=== PATIENT | female | born 1985 | race Caucasian/White ===

== ENCOUNTER → 2018-07-07 11:55 | Outpatient (CLI) | payer BC, SELFPAY ==
[2018-07-07 12:45] LABS: Add Manual Diff / Slide Review NO; Appearance Urine UA CLEAR; Basophils Percent Auto 0.3 % (0-2); Bilirubin Urine UA NEGATIVE (NEGATIVE); Color Urine UA YELLOW; Eosinophils Percent Auto 3.1 % (2-4); Glucose Urine UA NEGATIVE (Normal); Hemoglobin 11.7 g/dL (12.0-16.0); Ketones Urine UA NEGATIVE (NEGATIVE); Leukocyte Esterase Urine UA NEGATIVE (NEGATIVE); Lymphocytes Percent Auto 15.6 % (25-40); Mean Corpuscular HGB Conc 34.4 % (30-36); Monocytes Percent Auto 5.3 % (3-14); Neutrophils Absolute Auto 8500 /uL (3000-5900); Neutrophils Percent Auto 75.7 % (50-75); Nitrite Urine UA Negative (Negative); Occult Blood Urine UA NEGATIVE (Negative); Platelet Count 284 X10^3/uL (150-400); Protein Urine UA NEGATIVE (Negative); Red Blood Cell Count 3.78 X10^6/uL (4.0-5.2); Red Cell Distribution Width 12.7 % (11.6-14.8); Specific Gravity Urine UA 1.015 (1.000-1.035); Urobilinogen Urine UA 0.2 E.U./dL (0.2); White Blood Cell Count 11.3 X10^3/uL (4.5-11.0)
[2018-07-07 16:36] LABS: Hepatitis B Surface Antigen NEGATIVE s/c (NEGATIVE); Rubella Antibody IgG 62.5 IU/mL (>15)
[2018-07-07 16:42] LABS: HIV 1 and 2 Antibody NEGATIVE (NEGATIVE); Hep C Virus Ab w/Reflex Quant NEGATIVE s/c (NEGATIVE)
[2018-07-08 14:12] LABS: HSV 2 IGG AB < 0.90 index (< 0.90); HSV1IGG > 58.00 index (< 0.90)
[2018-07-15 14:51] LABS: Rapid Plasma Reagin NON REACTIVE
== END ==
PROVIDERS: Visit Provider Obstetrics & Gynecology
DX: O30.009 Twin pregnancy, unspecified number of placenta and unspecified number of amniotic sacs, unspecified trimester (principal); Z3A.10 10 weeks gestation of pregnancy
CPT/HCPCS: 36415; 80055; 81003; 86695; 86696; 86703; 86787; 86803; 86850; 86900; 86901; 87086

== ENCOUNTER → 2018-09-25 12:07 | Outpatient (CLI) | payer BC, SELFPAY ==
--- NOTE | 2018-09-25 12:08 | DI.US.S_ITS ---
PROCEDURE: US OB >= 14 WEEKS FETUS INDICATIONS: ANATOMY, TWINS OUTSIDE/PRIOR DATING DATA: Last menstrual period (LMP): Unknown. LMP-based estimated date of delivery (TOÑITO): N./A.. First dating scan (date and location): 07/08/18. Estimated date of delivery (TOÑITO) from first dating scan: 02/01/19. TECHNIQUE: Real-time scanning was performed of the fetuses, with image documentation and biometric measurements. Endovaginal scanning: No COMPARISON: [facility], [place], OB TWINS < 14 WEEKS, 09/02/2018, 16:30. FINDINGS: General: An intrauterine diamniotic dichorionic twin is present, as evidenced by separate placentas, differing sexes, or an intervening membrane of greater than 2 mm. Amniotic fluid index (composite): 14.2 cm. Maternal cervical canal: 3.8 cm long. Normal lower limit is 2.5 cm. FETUS A: Fetus is located on the maternal left side, and is vertex in presentation. Placental position is posterior, without previa. heart rate: 140 beats per minute. biometrics: Biparietal diameter: 21 weeks Head circumference: 20 weeks 4 days Abdominal circumference: 20 weeks 3 days Femur length: 20 weeks 2 days Estimated gestational age from initial scan: 21 weeks 4 days Composite gestational age from present scan: 20 weeks 4 days Estimated weight and percentile: 353 g; 6 percentile Measurement variability for biometric dating: +/- 7 days from 14 weeks to 15 weeks 6 days gestation, +/- 10 days from 16 weeks to 21 weeks 6 days gestation, +/- 2 weeks from 22 weeks to 27 weeks 6 days gestation, +/- 3 weeks for 28 weeks gestation or later. weight reference: 4500 g or EFW >90/95% is considered macrosomia or large for gestational age. EFW <10% is small for gestational age. EFW 5% or less is considered intra-uterine growth restriction. Anatomic survey: Neuro: Ventricles are normal at less than 10 mm. Cisterna magna is normal at 3-11 mm. Cerebellum is normal in size and morphology. Nuchal skin fold: Normal at less than 6 mm between 14 and 21 weeks gestational age. Face: Nose and lips, facial profile are normal. Spine: No evidence for spina bifida. Heart: 4 chambered heart is present, with normal ventricular outflow tracts. Diaphragm: Diaphragm is intact. Stomach: Left-sided stomach is present. Kidneys: No hydronephrosis. Normal ranges are less than 5 mm in 2nd trimester, less than 7 mm in 3rd trimester. Cord: 3 vessel cord has orthotopic insertion. Bladder: Normal in size. Extremities: All 4 extremities are visualized. FETUS B: Fetus is located on the maternal right side, and is in transverse presentation. Placental position is anterior, without previa. heart rate: 150 beats per minute. biometrics: Biparietal diameter: 21 weeks 3 days Head circumference: 21 weeks Abdominal circumference: 20 weeks 4 days Femur length: 21 weeks 1 day Estimated gestational age from initial scan: 21 weeks 4 days Composite gestational age from present scan: 21 weeks Estimated weight and percentile: 34 g; 15 percentile Measurement variability for biometric dating: +/- 7 days from 14 weeks to 15 weeks 6 days gestation, +/- 10 days from 16 weeks to 21 weeks 6 days gestation, +/- 2 weeks from 22 weeks to 27 weeks 6 days gestation, +/- 3 weeks for 28 weeks gestation or later. weight reference: 4500 g or EFW >90/95% is considered macrosomia or large for gestational age. EFW <10% is small for gestational age. EFW 5% or less is considered intra-uterine growth restriction. Anatomic survey: Neuro: Ventricles are normal at less than 10 mm. Cisterna magna is normal at 3-11 mm. Cerebellum is normal in size and morphology. Nuchal skin fold: Normal at less than 6 mm between 14 and 21 weeks gestational age. Face: Nose and lips, facial profile are normal. Spine: No evidence for spina bifida. Heart: 4 chambered heart is present, with normal ventricular outflow tracts. Diaphragm: Diaphragm is intact. Stomach: Left-sided stomach is present. Kidneys: No hydronephrosis. Normal ranges are less than 5 mm in 2nd trimester, less than 7 mm in 3rd trimester. Cord: 3 vessel cord has orthotopic insertion. Bladder: Normal in size. Extremities: All 4 extremities are visualized. IMPRESSION: Diamniotic dichorionic twin gestation redemonstrated and interval growth for fetus A is less than expected with estimated weight at the 6 percentile and growth for fetus B is normal with estimated weight 15 percentile. Recommend close clinical correlation and followup. Normal anatomic survey for fetus A and fetus B. Dictated by: Laron WOOTEN Interpreted: Severino Box MD on 09/28/2018 at 9:40 Approved by: Severino Box M.D. on 09/28/2018 at 13:32
== END ==
PROVIDERS: Visit Provider Obstetrics & Gynecology
DX: Z36.89 Encounter for other specified antenatal screening (principal); O30.002 Twin pregnancy, unspecified number of placenta and unspecified number of amniotic sacs, second trimester; Z3A.20 20 weeks gestation of pregnancy
CPT/HCPCS: 76811; 76812

== ENCOUNTER → 2018-10-27 13:27 | Outpatient (CLI) | payer BC, SELFPAY ==
[2018-10-27 14:51] LABS: Hematocrit 29.8 % (36-46); Hemoglobin 10.4 g/dL (12.0-16.0)
[2018-10-27 15:42] LABS: GTT (PREG) 1 Hour PP 50gm Dose 124 mg/dL (76-139)
== END ==
PROVIDERS: Visit Provider Obstetrics & Gynecology
DX: Z34.82 Encounter for supervision of other normal pregnancy, second trimester (principal)
CPT/HCPCS: 36415; 82950; 85014; 85018

== ENCOUNTER → 2018-11-19 14:22 | Outpatient (CLI) | payer BC, SELFPAY ==
[2018-11-19 16:11] LABS: Free T3, Triiodothyronine Free 2.88 pg/mL (2.77-5.27); Free T4, Direct Thyroxine 0.78 ng/dL (0.78-2.19)
[2018-11-19 16:25] LABS: Thyroid Stimulating Hormone 0.32 uIU/mL (0.47-4.68)
[2018-11-19 16:30] LABS: Ferritin 11.4 ng/mL (6.27-137)
== END ==
PROVIDERS: Visit Provider Naturopath
DX: E03.9 Hypothyroidism, unspecified (principal); D50.9 Iron deficiency anemia, unspecified
CPT/HCPCS: 36415; 82728; 84439; 84443; 84481

== ENCOUNTER → 2019-01-01 16:16 | Outpatient (CLI) | payer BC, SELFPAY ==
[2019-01-02 12:27] LABS: Strep Grp B PCR NEG for Grp B Strep
== END ==
PROVIDERS: Visit Provider Obstetrics & Gynecology
DX: Z34.83 Encounter for supervision of other normal pregnancy, third trimester (principal)
CPT/HCPCS: 87653

== ENCOUNTER 2019-01-01 17:12 | Outpatient (CLI) | payer BC, SELFPAY | END 2019-01-01 18:35 | disposition home or self-care (01) | LOC: OB 01-04 08:44 | PROVIDERS: Visit Provider Obstetrics & Gynecology | DX: O30.043 Twin pregnancy, dichorionic/diamniotic, third trimester (principal); Z3A.35 35 weeks gestation of pregnancy | CPT/HCPCS: 59025; 87653; G0378; G0379 ==

== ENCOUNTER 2019-01-06 13:05 | Outpatient (CLI) | payer BC, SELFPAY ==
--- NOTE | 2019-01-06 13:39 | PM.OBTRLD ---
Visit Information Visit Information Date of evaluation: 01/06/19 Primary OB Provider: Lyly Hanley On-call OB Provider: Lesly Martínez Reason for Evaluation: Yes non-stress test non-stress test reason: other (twins 36 week) [facility] Social History Smoking Status: Never smoker Social History Smoking Status: Never smoker Exam Vital Signs (past 8 hours): Blood pressure 132/74, pulse of 81 Evaluation Evaluation Baseline heart rate: 120 (both) Variability: Moderate (11-25) (both) monitor accelerations: Present (both) monitor decelerations: Absent (both) Contraction Frequency (minutes): 0 Diagnosis, Plan/Disposition Final Diagnosis (1) Monochorionic diamniotic twin gestation in third trimester: Current Visit: Yes Status: Acute (2) 36 weeks gestation of : Current Visit: Yes Status: Acute Plan/Disposition Plan: Thirty-six week monochorionic diamniotic twins with reactive NST continue routine OB care OB Disposition: home
--- NOTE | 2019-01-06 13:43 | P.TNLD_ITS ---
Visit Information Visit Information Date of evaluation: 01/06/19 Primary OB Provider: Lyly Hanley On-call OB Provider: Lesly Martínez Reason for Evaluation: Yes non-stress test non-stress test reason: other (twins 36 week) [facility] Social History Smoking Status: Never smoker Social History Smoking Status: Never smoker Exam Vital Signs (past 8 hours): Blood pressure 132/74, pulse of 81 Evaluation Evaluation Baseline heart rate: 120 (both) Variability: Moderate (11-25) (both) monitor accelerations: Present (both) monitor decelerations: Absent (both) Contraction Frequency (minutes): 0 Diagnosis, Plan/Disposition Final Diagnosis (1) Monochorionic diamniotic twin gestation in third trimester: Current Visit: Yes Status: Acute (2) 36 weeks gestation of : Current Visit: Yes Status: Acute Plan/Disposition Plan: Thirty-six week monochorionic diamniotic twins with reactive NST continue routine OB care OB Disposition: home
== END 2019-01-06 13:45 | disposition home or self-care (01) ==
LOC: OB 01-08 10:54
PROVIDERS: Visit Provider Obstetrics & Gynecology
DX: Z34.83 Encounter for supervision of other normal pregnancy, third trimester (principal); Z3A.36 36 weeks gestation of pregnancy
CPT/HCPCS: 59025; G0378; G0379

== ENCOUNTER 2019-01-11 16:43 | Outpatient (CLI) | payer BC, SELFPAY | END 2019-01-11 17:37 | disposition home or self-care (01) | LOC: LABOR 16:49 → OB 01-14 10:32 | PROVIDERS: Visit Provider Obstetrics & Gynecology | DX: Z34.83 Encounter for supervision of other normal pregnancy, third trimester (principal); Z3A.36 36 weeks gestation of pregnancy | CPT/HCPCS: 59025; G0378; G0379 ==

== ENCOUNTER 2019-01-15 13:57 | Observation (INO) | payer BC, SELFPAY | END 2019-01-15 16:00 | disposition home or self-care (01) | PROVIDERS: Admitting Provider Obstetrics & Gynecology; Visit Provider Obstetrics & Gynecology | DX: O30.043 Twin pregnancy, dichorionic/diamniotic, third trimester (principal); Z3A.37 37 weeks gestation of pregnancy | CPT/HCPCS: 59025; 59050; G0378; G0379 ==

== ENCOUNTER 2019-01-19 07:12 | Inpatient (IN) | payer BC, SELFPAY ==
[2019-01-19] VITALS (8 sets, daily range): BP systolic 117–130; BP diastolic 65–87; PULSE 113–135; RESP 11–17; TEMP 36.6; O2SAT 96–99
--- NOTE | 2019-01-19 | DI.RAD.S_ITS ---
PROCEDURE: XR PELVIS 1-2V INDICATIONS: LOOKING FOR OPERATING ROOM SPONGES TECHNIQUE: 2 interoperative view(s) of the pelvis acquired. COMPARISON: None. FINDINGS: Bones: No fractures or dislocations. No suspicious bony lesions. Soft tissues: Visualized bowel gas pattern is normal. No suspicious soft tissue calcifications. IMPRESSION: No retained radiopaque foreign body. Dictated by: Emily Kay M.D. on 01/19/2019 at 21:28 Approved by: Emily Kay M.D. on 01/19/2019 at 21:29
[2019-01-19 08:30] LABS: Add Manual Diff / Slide Review NO; Basophils Absolute Auto 100 /uL (0-100); Basophils Percent Auto 0.6 % (0-2); Eosinophils Absolute Auto 0 /uL (0-450); Eosinophils Percent Auto 0.5 % (2-4); Hematocrit 31.7 % (36-46); Hemoglobin 10.9 g/dL (12.0-16.0); Lymphocytes Absolute Auto 1800 /uL (1100-4500); Lymphocytes Percent Auto 18.1 % (25-40); Mean Corpuscular HGB Conc 34.5 % (30-36); Mean Corpuscular Hemoglobin 31.6 PG (26-34); Mean Corpuscular Volume 91.6 fL (80-100); Monocytes Absolute Auto 700 /uL (0-900); Monocytes Percent Auto 7.3 % (3-14); Neutrophils Absolute Auto 7400 /uL (1500-7000); Neutrophils Percent Auto 73.5 % (50-75); Platelet Count 198 X10^3/uL (150-400); Red Blood Cell Count 3.45 X10^6/uL (4.0-5.2); Red Cell Distribution Width 13.4 % (11.6-14.8); White Blood Cell Count 10.1 X10^3/uL (4.5-11.0)
[2019-01-19] MEDS: LACTATED RINGERS 1,000 ML 100 ML IV (08:51)
[2019-01-19] MEDS: OXYTOCIN PREMIX 30 UNIT/500 ML PLAST..BAG IV (08:52)
[2019-01-19] MEDS: CEFAZOLIN 2 GM/100 ML FROZ.PIGGY IV (19:18)
--- NOTE | 2019-01-19 20:23 | PM.PREOP ---
Pre-operative Note Interval Note History & Physical reviewed/Exam performed by Physician: Yes Changes to H&P: No
[2019-01-19] MEDS: HYDROMORPHONE 2 MG INJ 0.5 MG IV (20:30)
[2019-01-19] MEDS: METOCLOPRAMIDE 10 MG/2 ML INJ IV (20:41)
[2019-01-19] MEDS: LACTATED RINGERS 1,000 ML 42 ML IV (20:43)
--- NOTE | 2019-01-19 20:46 | SUR.OPER ---
Supine on padded OR bed, head on pillow, arms on padded arm boards at <90 degrees abduction, legs uncrossed.
--- NOTE | 2019-01-19 20:49 | SUR.OPER ---
Emergency case. Unable to complete time out and counts. Post operative x-ray completed before removal of the drapes at the end of the case. No surgical items left in patient's cavity per Dr. Hanley.
--- NOTE | 2019-01-19 20:52 | SUR.OPER ---
Viable male delivered at 1924. Placenta and cord for blood specimens sent with the L&D nurses.
[2019-01-20 00:13] VITALS: BP 129/73
[2019-01-20] MEDS: KETOROLAC 30 MG/ML VIAL IV ×3 (00:26→12:12)
[2019-01-20] MEDS: ACETAMINOPHEN 325 MG TABLET 650 MG PO ×3 (00:27→20:39)
[2019-01-20] MEDS: LACTATED RINGERS 1,000 ML 125 ML IV (00:27)
[2019-01-20 06:41] LABS: Hematocrit 18.2 % (36-46); Hemoglobin 6.1 g/dL (12.0-16.0)
[2019-01-20] MEDS: PRENATAL VIT,CALC/IRON/FOLIC 1 TABLET 1 TAB PO (09:31)
[2019-01-20] MEDS: DOCUSATE 250 MG CAPSULE PO (09:31)
[2019-01-20] MEDS: OXYCODONE/ACETAMINOPHEN 5/325 TABLET 1 TAB PO (09:32)
[2019-01-20] MEDS: THYROID, PORK 30 MG TABLET 45 MG PO (11:03)
[2019-01-20] MEDS: OXYCODONE/ACETAMINOPHEN 5/325 TABLET 2 TAB PO ×2 (13:32→18:27)
--- NOTE | 2019-01-20 19:17 | PM.OBHP.1 ---
OB HPI Date/Time Date of admission: 01/19/19 Date Patient Seen: 01/19/19 Time Patient Seen: 07:45 History of Present Condition Chief complaint: LABOR & DELIVERY : 3 Para: 1 Estimated Date of Delivery: 02/02/19 Estimated Gestational Age (weeks): 38 Narrative: Vonda Contreras is a 33 year old female 2 para 1 at 38 weeks gestation with dichorionic diamniotic twins for induction of labor. Indications Indication for induction OB: other (Twins) History of Present care: good care, initiated at week # (8), number of visits (11) and pounds weight gain (22) Dating criteria: LMP confirmed by 1st trimester US Ultrasounds: normal 1st trimester US and normal mid trimester US Obstetrical complications: none Medical complications: none Narrative: Twins by IVF Preadmission Labs Blood type: AB (+) positive -: Antibody screen: negative, GBS status: negative, HBsAG: negative, HIV: negative, HSV 1: positive, HSV 2: negative and RPR/VDLR: negative -: Chlamydia screen: not detected and Gonorrhea screen: not detected -: Rubella: immune and Varicella: immune HCT: 29.8 HCAB: negative Urine: Negative 1 hr GTT: 124 Prior (ies) History: SAB Evaluation Evaluation Baseline heart rate: 120 Variability: Moderate (11-25) monitor accelerations: Present monitor decelerations: Absent Category of Tracing: I Cervical dilation (cm): 3 Cervical effacement (%): 80 station: -1 Laboratory results: Laboratory Tests 01/19/19 01/19/19 01/20/19 07:55 07:55 06:12 WBC 10.1 RBC 3.45 L Hgb 10.9 L 6.1 L* Hct 31.7 L 18.2 L* MCV 91.6 MCH 31.6 MCHC 34.5 RDW 13.4 Plt Count 198 Neut % (Auto) 73.5 Lymph % (Auto) 18.1 L [place] % (Auto) 7.3 Eos % (Auto) 0.5 L Baso % (Auto) 0.6 Neut # (Auto) 7400 H Lymph # (Auto) 1800 [place] # (Auto) 700 Eos # (Auto) 0 Baso # (Auto) 100 Blood Type AB Positive Antibody Screen Negative [facility] Social History Smoking Status: Never smoker Social History Smoking Status: Never smoker Meds Home Medications Medication Instructions Recorded Confirmed Type estrogen patch TOP 07/07/18 07/07/18 History 1 tab PO DAILY 07/07/18 01/19/19 History vitamin,calcium,tiusnkem-ikju-uijpg acid tablet progesterone micronized 200 mg 200 mg PO BEDTIME 07/07/18 07/07/18 History capsule thyroid (pork) 90 mg tablet 90 mg PO DAILY 07/07/18 01/19/19 History Allergies Allergy/AdvReac Type Severity Reaction Status Date / Time Sulfa (Sulfonamide Allergy rash Verified 01/19/19 23:29 Antibiotics) gluten AdvReac Mild Verified 01/19/19 23:29 Exam Vital Signs (past 8 hours): Oxygen Delivery Method Room Air Narrative Exam Narrative: Generally: Patient is sitting up in bed, no acute distress Lungs: Clear to auscultation bilaterally Cardiovascular: Regular rate and rhythm Fundal height: 43 cm Extremities: Trace edema Estimated weight 5 and 0.5 lb each Objective Labs Result Diagrams: 01/20/19 06:12 Labs: Laboratory Results - last 24 hr 01/20/19 06:12 Hgb 6.1 L* Hct 18.2 L*
--- NOTE | 2019-01-20 19:25 | P.HPOB_ITS ---
OB HPI Date/Time Date of admission: 01/19/19 Date Patient Seen: 01/19/19 Time Patient Seen: 07:45 History of Present Condition Chief complaint: LABOR & DELIVERY : 3 Para: 1 Estimated Date of Delivery: 02/02/19 Estimated Gestational Age (weeks): 38 Narrative: Vonda Contreras is a 33 year old female 2 para 1 at 38 weeks gestation with dichorionic diamniotic twins for induction of labor. Indications Indication for induction OB: other (Twins) History of Present care: good care, initiated at week # (8), number of visits (11) and pounds weight gain (22) Dating criteria: LMP confirmed by 1st trimester US Ultrasounds: normal 1st trimester US and normal mid trimester US Obstetrical complications: none Medical complications: none Narrative: Twins by IVF Preadmission Labs Blood type: AB (+) positive -: Antibody screen: negative, GBS status: negative, HBsAG: negative, HIV: negative, HSV 1: positive, HSV 2: negative and RPR/VDLR: negative -: Chlamydia screen: not detected and Gonorrhea screen: not detected -: Rubella: immune and Varicella: immune HCT: 29.8 HCAB: negative Urine: Negative 1 hr GTT: 124 Prior (ies) History: SAB Evaluation Evaluation Baseline heart rate: 120 Variability: Moderate (11-25) monitor accelerations: Present monitor decelerations: Absent Category of Tracing: I Cervical dilation (cm): 3 Cervical effacement (%): 80 station: -1 Laboratory results: Laboratory Tests 01/19/19 01/19/19 01/20/19 07:55 07:55 06:12 WBC 10.1 RBC 3.45 L Hgb 10.9 L 6.1 L* Hct 31.7 L 18.2 L* MCV 91.6 MCH 31.6 MCHC 34.5 RDW 13.4 Plt Count 198 Neut % (Auto) 73.5 Lymph % (Auto) 18.1 L [place] % (Auto) 7.3 Eos % (Auto) 0.5 L Baso % (Auto) 0.6 Neut # (Auto) 7400 H Lymph # (Auto) 1800 [place] # (Auto) 700 Eos # (Auto) 0 Baso # (Auto) 100 Blood Type AB Positive Antibody Screen Negative [facility] Social History Smoking Status: Never smoker Social History Smoking Status: Never smoker Meds Home Medications Medication Instructions Recorded Confirmed Type estrogen patch TOP 07/07/18 07/07/18 History 1 tab PO DAILY 07/07/18 01/19/19 History vitamin,calcium,objmcczm-yxcn-ttavt acid tablet progesterone micronized 200 mg 200 mg PO BEDTIME 07/07/18 07/07/18 History capsule thyroid (pork) 90 mg tablet 90 mg PO DAILY 07/07/18 01/19/19 History Allergies Allergy/AdvReac Type Severity Reaction Status Date / Time Sulfa (Sulfonamide Allergy rash Verified 01/19/19 23:29 Antibiotics) gluten AdvReac Mild Verified 01/19/19 23:29 Exam Vital Signs (past 8 hours): Oxygen Delivery Method Room Air Narrative Exam Narrative: Generally: Patient is sitting up in bed, no acute distress Lungs: Clear to auscultation bilaterally Cardiovascular: Regular rate and rhythm Fundal height: 43 cm Extremities: Trace edema Estimated weight 5 and 0.5 lb each Objective Labs Result Diagrams: 01/20/19 06:12 Labs: Laboratory Results - last 24 hr 01/20/19 06:12 Hgb 6.1 L* Hct 18.2 L*
--- NOTE | 2019-01-20 19:29 | P.PCNOB_ITS ---
Events: Labor Induction Delivery date: 01/19/19 Cervical ripening method: none Induction method: per pitocin protocol Delivery augmentation: rupture of membranes Delivery monitor: external FHT and external uterine Route of delivery: Episiotomy description: None L&D Laceration Description: None Estimated blood loss (mL): 50 Anesthesia type: None Complications: None Narrative: Patient progressed to complete dilation. She pushed for 8 min. At 6:39 p.m., a live female infant delivered spontaneously over an intact perineum. A nuchal cord x1 was reduced on the perineum. The remainder of the body deli veronika without difficulty and was placed on mom's abdomen. The cord was double clamped and cut. Cord bloods were obtained. Apgars 9 at 1 min and 9 at 5 min. . Weight 5 lb 8.19 oz.
--- NOTE | 2019-01-20 19:29 | PM.GYNOP.1 ---
Operative Date/Time/Diagnoses Date of procedure: 01/19/19 Time of procedure: 20:30 Pre-op diagnosis: Dichorionic diamniotic twins at 38 weeks gestation intolerance of labor for baby B Double footling breech presentation Post-op diagnosis: same Procedure: Procedures Operation Date: 01/19/19 19:10 Actual Procedures Side Surgeon p Section Lyly Hanley MD Indications: Dichorionic diamniotic twin gestation at 38 weeks gestation Baby B in the double footling breech presentation intolerance of labor for baby B Surgeon: Lyly Hanley Home Care Chaplain: Rodri Rogers Anesthesia Type: General (Due to heart rate in the 50s) Operative Notes Findings: Live male in the double footling breech presentation Abruption of placenta A Closure Type: primary Specimen(s): other (Cord bloods, cord pH, placenta) Applied: catheter Estimated blood loss (mL): 800 Blood products transfused: none Procedure in detail: The patient was rushed to the operating room when baby B's heart rate dropped to the 50s. With oxygen administered to the mom and position changes there was no increase in the heart rate. She was taken emergently to the operating room and prepped and draped in the usual fashion. General anesthesia was administered. A Pfannenstiel skin incision was made and carried through to the underlying layer of fascia. The fascia was incised with the 10. Blade and extended with scalp all bilaterally. The rectus muscles were in the midline bluntly. The peritoneum was identified and entered sharply with a scalpel. The peritoneal incision was extended bluntly. The bladder blade was inserted. The vesicouterine peritoneum was grasped and entered sharply with a scalpel. The bladder flap was created digitally. The bladder blade was reinserted. The lower uterine segment was incised in a transverse fashion with the scalpel. Upon entering the amniotic sac there was a moderate amount of clear amniotic fluid. The was found to be in the double footling breech presentation. The infant was delivered without difficulty. The cord was double clamped and cut. Cord bloods were obtained. A piece of cord for cord pH was obtained. The placenta of baby a was found to be floating in the uterine cavity. The placentas were delivered manually. The uterus was cleared of all clots and debris. The bladder blade was reinserted. The uterus was closed with 1. Chromic in a running interlocking fashion. A 2nd layer using the same suture was used for an imbricating layer. Hemostasis was achieved. The tubes and ovaries were examined and were found to be normal. The gutters were cleared of all clots and debris. The bladder flap was reapproximated using 2 0 Vicryl in a running fashion. The parietal peritoneum was closed using 2 0 Vicryl in a running fashion. The fascia was reapproximated using 0 Vicryl in a running fashion. Hemostasis was achieved in the subcutaneous layer using the Bovie. The subcutaneous layer was reapproximated using 2 0 Vicryl in 5 simple interrupted sutures. The skin was closed with 4 0 undyed Vicryl in a subcuticular fashion. Steri-Strips and an Aquacel dressing were placed. The uterus was expressed of a small amount of old blood. An x-ray was taken due to no instruments or lap count prior to the procedure due to the emergent nature. There were no laps or instruments left in the abdomen. The patient tolerated the procedure well, and was taken to PACU in stable condition. Complications: none Post-operative Condition: stable Disposition: PACU Plan for aftercare: To Center after recovery
--- NOTE | 2019-01-20 19:41 | P.PNOB_ITS ---
Subjective - OB Patient comments: no complaints, incisional pain and tolerating diet [place] baby status: doing well and nursing well (Baby A, Baby B with some nursing issues) [place] feeding status: exclusively breast feeding Date Patient Seen: 01/20/19 Time Patient Seen: 19:38 Exam Vital Signs (past 8 hours): Oxygen Delivery Method Room Air Narrative Exam Narrative: Generally: Patient is sitting up in bed, eating dinner, no acute distress Lungs: Clear to auscultation bilaterally Cardiovascular: Regular rate and rhythm Abdomen: Soft, good bowel sounds Fundus: Firm at U -3 Extremities: Negative Homans, trace edema Objective Labs Result Diagrams: 01/20/19 06:12 Labs: Laboratory Results - last 24 hr 01/20/19 06:12 Hgb 6.1 L* Hct 18.2 L* Assessment & Plan (1) 38 weeks gestation of : Status: Acute Current Visit: Yes (2) Dichorionic diamniotic twin gestation: Status: Acute Current Visit: Yes (3) Encounter for induction of labor: Status: Acute Current Visit: Yes (4) Spontaneous vaginal delivery: Status: Acute Current Visit: Yes (5) Status post primary low transverse section: Status: Acute Assessment and plan: Assessment: 33-year-old 3 para 2 013 post day # 1 status post spontaneous vaginal delivery of baby A, postop day # 1 status post emergent section of baby B doing well. Postoperative anemia without symptoms issues with baby B Plan: consultation Continue routine postoperative/ care Current Visit: Yes Plan day: 1 plan OB: routine care and routine postop care Time Spent With Patient Total time spent is greater than 50% in coordination of care (as documented) at patient's floor/unit and/or counseling patient: 15-24 minutes
[2019-01-20] MEDS: IBUPROFEN 600 MG TABLET PO (20:39)
[2019-01-21] MEDS: THYROID, PORK 30 MG TABLET 45 MG PO (05:06)
[2019-01-21] MEDS: IBUPROFEN 600 MG TABLET PO ×3 (05:07→20:22)
[2019-01-21] MEDS: OXYCODONE/ACETAMINOPHEN 5/325 TABLET 2 TAB PO ×3 (05:07→16:50)
[2019-01-21] MEDS: CEFAZOLIN 1 GM/50 ML FROZ.PIGGY IV ×2 (09:03→16:51)
[2019-01-21] MEDS: DOCUSATE 250 MG CAPSULE PO (09:03)
[2019-01-21] MEDS: PRENATAL VIT,CALC/IRON/FOLIC 1 TABLET 1 TAB PO (09:03)
--- NOTE | 2019-01-21 14:05 | P.PNOB_ITS ---
Subjective - OB Patient comments: no complaints, pain well controlled, tolerating diet and flatus present baby status: nursing well and other (Twin) [place] feeding status: exclusively breast feeding Date Patient Seen: 01/21/19 Time Patient Seen: 14:04 Interval history: Patient's Tovar catheter was removed this morning and she has been able to void without the catheter. She is just about to take a shower. Exam Vital Signs (past 8 hours): Oxygen Delivery Method Room Air Narrative Exam Narrative: Generally: Sitting up in bed, no acute distress Lungs: Clear to auscultation bilaterally Cardiovascular: Regular rate and rhythm Abdomen: Soft, good bowel sounds Fundus: Firm at U -3 Incision: Clean dry and intact with op site Extremities: Trace edema, negative Homans Objective Labs Result Diagrams: 01/20/19 06:12 Assessment & Plan (1) 38 weeks gestation of : Status: Acute Current Visit: Yes (2) Dichorionic diamniotic twin gestation: Status: Acute Current Visit: Yes (3) Encounter for induction of labor: Status: Acute Current Visit: Yes (4) Spontaneous vaginal delivery: Status: Acute Current Visit: Yes (5) Status post primary low transverse section: Status: Acute Current Visit: Yes Plan day: 2 plan OB: routine care and routine postop care Time Spent With Patient Total time spent is greater than 50% in coordination of care (as documented) at patient's floor/unit and/or counseling patient: 15-24 minutes
[2019-01-21] MEDS: LANOLIN OINT 7 GM 1 APPLIC TOP (20:24)
[2019-01-21 22:34] VITALS: TEMP 37.7
[2019-01-21] MEDS: OXYCODONE/ACETAMINOPHEN 5/325 TABLET 1 TAB PO (22:34)
[2019-01-22] MEDS: CEFAZOLIN 1 GM/50 ML FROZ.PIGGY IV ×2 (01:13→09:03)
[2019-01-22] MEDS: OXYCODONE/ACETAMINOPHEN 5/325 TABLET 1 TAB PO ×2 (07:40→11:53)
[2019-01-22] MEDS: THYROID, PORK 30 MG TABLET 45 MG PO (08:27)
--- NOTE | 2019-01-22 08:56 | PM.OBDS.1 ---
Discharge Providers Date of admission: 01/19/19 07:12 Discharge Date: 01/22/19 Consults: 01/19/19 23:27 Consult to Account Manager Employee Benefits Routine Comment: Discharge provider: Lesly Martínez MD Summary Date Patient Seen: 01/22/19 Time Patient Seen: 08:57 Procedures: Pitocin induction, spontaneous vaginal delivery, emergency section for footling breech 2nd infant with intolerance of labor Hospital Course: Patient arrived on Labor and delivery for Pitocin induction at 38 weeks for twin gestation. She progressed normally and had a spontaneous vaginal delivery of baby a without difficulty. Baby B became a footling breech with intolerance of labor so underwent an emergency section for delivery of baby B. patient had a fall in her hematocrit from 29.8 to 18.2 but she remained asymptomatic. Patient is passing gas. She denies any signs or symptoms of preeclampsia. However she did have a temperature elevation last night to 100.4 despite IV antibiotics. Current temperature 99.7?. Blood pressure 132/71, pulse of 97. Patient's abdomen is soft with appropriate tenderness. Uterus is firm, at U, appropriately tender. The dressing is dry and intact. Mild lochia. Extremities with trace edema and nontender. Peripartum Data Delivery Method: Emergency Section (Natural vaginal delivery of twin a with section emergently for twin B) Laceration description: None Procedures: Pitocin induction, spontaneous vaginal delivery, emergency low-transverse section complications: none [place] 1: Gender: Female Disposition of : home 2: Gender: Male Disposition of : home Discharge Diagnosis (1) 38 weeks gestation of : Status: Acute (2) Dichorionic diamniotic twin gestation: Status: Acute (3) Encounter for induction of labor: Status: Acute (4) Spontaneous vaginal delivery: Status: Acute (5) Status post primary low transverse section: Status: Acute (6) Endometritis following delivery: Status: Acute Problem Details: Patient will be sent home on Augmentin (7) Acute blood loss anemia: Status: Acute Time Spent with Patient Total time spent providing and/or coordinating discharge services: Objective Labs Result Diagrams: 01/20/19 06:12 Exam Vital Signs (past 8 hours): Oxygen Delivery Method Room Air Discharge Plan Discharge Plan Patient Disposition: Home Discharge comment: Call with fever, chills, redness or drainage around incision or bleeding vaginally more than a pad in an hour Discharge Med Rec/Prescriptions Prescriptions: New oxycodone-acetaminophen [Percocet] 5-325 mg tablet 1 tab PO Q4-6H PRN (Reason: pain) Qty: 30 RF: 0 amoxicillin-pot clavulanate 875-125 mg tablet 1 tab PO BID PRN (Reason: Endometritis) Qty: 14 RF: 0 Continued prenat.vits,rubio,ggd-mkkw-hlhhi [ Vitamin] tablet 1 tab PO DAILY RF: 0 thyroid (pork) [Clute Thyroid] 90 mg tablet 90 mg PO DAILY RF: 0 Discontinued progesterone micronized 200 mg capsule 200 mg PO BEDTIME RF: 0 estrogen patch TOP RF: 0 Follow up/Referrals: Lyly Hanley MD [Physician] - 1 Week (Follow up with Dr. Hanley at [facility] on January 29 at 3:45PM to remove aquacell dressing and check incision. ) Provider Discharge Instructions Diet: Diet as Tolerated Activity: No heavy lifting Skin/Wound/Dressing Care Report to your healthcare provider any signs of infection, such as:: chills, fever, increased pain, unusual drainage and unusual redness Dressing: Do not remove Visit Report/Discharge Packet Instructions: DI for Labor and Delivery, Vaginal , DI for Stand Alone Forms: Discharge: Care Discharge Data Attending Provider: Lyly Hanley Admit Date/Time: 01/19/19 07:12
[2019-01-22] MEDS: IBUPROFEN 600 MG TABLET PO (09:03)
[2019-01-22 11:12] VITALS: BP 133/75; PULSE 100; RESP 18; TEMP 36.9
== END 2019-01-22 16:20 | disposition home or self-care (01) | DRG 787 ==
PROVIDERS: Admitting Provider Obstetrics & Gynecology; Visit Provider Obstetrics & Gynecology
PROC: 10E0XZZ Delivery of Products of Conception, External Approach (ICD-10-PCS; CPT 59514; principal; 2019-01-19 19:10)
DX: O30.043 Twin pregnancy, dichorionic/diamniotic, third trimester (principal); D62 Acute posthemorrhagic anemia; O86.12 Endometritis following delivery; Z37.2 Twins, both liveborn; Z3A.38 38 weeks gestation of pregnancy; O32.8XX2 Maternal care for other malpresentation of fetus, fetus 2; O76 Abnormality in fetal heart rate and rhythm complicating labor and delivery
CPT/HCPCS: 36415; 59050; 59409; 59510; 59514; 72170; 76000; 76815; 85014; 85018; 85025; 86850; 86900; 86901; G0379; J0330; J0690; J1170; J1885; J2250; J2405; J2590; J2704; J2765; J3010

== ENCOUNTER → 2020-05-03 16:14 | Outpatient (CLI) | payer BC, SELFPAY ==
[2020-05-03 17:02] LABS: Add Manual Diff / Slide Review NO; Basophils Absolute Auto 0 /uL (0-100); Basophils Percent Auto 0.4 % (0-2); Eosinophils Absolute Auto 0 /uL (0-450); Eosinophils Percent Auto 0.5 % (2-4); Hemoglobin 14.3 g/dL (12.0-16.0); Lymphocytes Absolute Auto 1800 /uL (1100-4500); Lymphocytes Percent Auto 19.3 % (25-40); Mean Corpuscular HGB Conc 33.4 % (30-36); Monocytes Absolute Auto 500 /uL (0-900); Monocytes Percent Auto 5.7 % (3-14); Neutrophils Absolute Auto 7000 /uL (1500-7000); Neutrophils Percent Auto 74.1 % (50-75); Platelet Count 302 X10^3/uL (150-400); Red Blood Cell Count 4.77 X10^6/uL (4.0-5.2); Red Cell Distribution Width 13.9 % (11.6-14.8); White Blood Cell Count 9.4 X10^3/uL (4.5-11.0)
[2020-05-03 18:13] LABS: Hepatitis B Surface Antigen NEGATIVE s/c (NEGATIVE); Rubella Antibody IgG 56.7 IU/mL (>15)
[2020-05-03 18:30] LABS: HIV 1 & 2 Ab/Ag 4th Gen Combo NEGATIVE (NEGATIVE); Hep C Virus Ab w/Reflex Quant NEGATIVE s/c (NEGATIVE)
[2020-05-03 18:43] LABS: Appearance Urine UA CLEAR; Bilirubin Urine UA NEGATIVE (NEGATIVE); Color Urine UA YELLOW; Glucose Urine UA NEGATIVE (Negative); Ketones Urine UA NEGATIVE (NEGATIVE); Leukocyte Esterase Urine UA NEGATIVE (NEGATIVE); Nitrite Urine UA NEGATIVE (Negative); Occult Blood Urine UA 2+ (Negative); Protein Urine UA NEGATIVE (Negative); Urobilinogen Urine UA 0.2 E.U./dL (0.2)
[2020-05-03 18:45] LABS: Bacteria Urine None Seen; RBC Urine None Seen (0-5/HPF); WBC Urine None Seen (0-5/HPF)
[2020-05-04 03:08] LABS: RPR Screen Non Reactive (Non Reactive)
[2020-05-04 09:13] LABS: Varicella IgG Antibody 968 index (Immune >165)
== END ==
PROVIDERS: Referring Provider Obstetrics & Gynecology; Visit Provider Obstetrics & Gynecology
DX: Z34.81 Encounter for supervision of other normal pregnancy, first trimester (principal); Z13.29 Encounter for screening for other suspected endocrine disorder; Z32.01 Encounter for pregnancy test, result positive
CPT/HCPCS: 36415; 80055; 81003; 81015; 84443; 86787; 86803; 86850; 86900; 86901; 87086; 87389

== ENCOUNTER → 2020-05-10 18:51 | Outpatient (ROUT) | payer BC, SELFPAY ==
[2020-05-10 20:24] LABS: Urine N gonorrhoeae NOT DETECTED
[2020-05-10 20:52] LABS: Urine Chlamydia NOT DETECTED
== END ==
PROVIDERS: Visit Provider Obstetrics & Gynecology
DX: Z11.3 Encounter for screening for infections with a predominantly sexual mode of transmission (principal)
CPT/HCPCS: 87491; 87591

== ENCOUNTER → 2020-07-05 16:55 | Outpatient (CLI) | payer BC, SELFPAY ==
[2020-07-07 20:36] LABS: AFP, Serum 55.6 ng/mL (.); Calc Gestational Age Ultrasound (.); Estriol, Free 1.18 ng/mL (.); Inhibin A, Dimeric 176.83 pg/mL (.); Inhibin A, MoM 1.06 (.); Maternal Ethnicity Caucasian (.); Maternal Weight 146 lbs (.); Number of Fetuses No (.); OSBR Risk 1 IN 2809 (.); Results Report (.); Test Results *Screen Negative* (.); hCG, MoM 1.28 (.); hCG, Serum 45466 mIU/mL (.)
== END ==
PROVIDERS: PCP Obstetrics & Gynecology; Referring Provider Obstetrics & Gynecology; Visit Provider Obstetrics & Gynecology
DX: Z34.82 Encounter for supervision of other normal pregnancy, second trimester (principal); Z3A.16 16 weeks gestation of pregnancy
CPT/HCPCS: 36415; 82105; 82677; 84702; 86336

== ENCOUNTER → 2020-08-02 13:00 | Outpatient (CLI) | payer BC, SELFPAY ==
--- NOTE | 2020-08-02 13:01 | DI.US.S_ITS ---
PROCEDURE: US OB >= 14 WEEKS FETUS INDICATIONS: Anatomy Scan OUTSIDE/PRIOR DATING DATA: First dating scan (date and location): 05/03/2020 . Estimated date of delivery ([place]) from first dating scan: 12/13/2020 . TECHNIQUE: Real-time scanning was performed of the fetus, with image documentation and biometric measurements. Endovaginal scanning: No COMPARISON: [facility], , OB >= 14 WEEKS FETUS, 07/05/2020, 16:50. FINDINGS: General: A single living intrauterine gestation is present. Presentation: Breech. Placenta: Placental position is is posterior , without previa. Amniotic fluid index: 12.3 cm, normal range is 5-24 cm. heart rate: 137 beats per minute. Maternal cervical canal: 4.3 cm long. Normal lower limit is 2.5 cm. biometrics: Biparietal diameter: 20 weeks 3 days Head circumference: 20 weeks 5 days Abdominal circumference: 20 weeks 5 Femur length: 20 weeks 5 days Estimated gestational age from initial scan: 21 weeks Composite gestational age from present scan: 20 weeks 5 days Estimated weight and percentile: 373 g; 30th percentile Measurement variability for biometric dating: +/- 7 days from 14 weeks to 15 weeks 6 days gestation, +/- 10 days from 16 weeks to 21 weeks 6 days gestation, +/- 2 weeks from 22 weeks to 27 weeks 6 days gestation, +/- 3 weeks for 28 weeks gestation or later. weight reference: 4500 g or EFW >90/95% is considered macrosomia or large for gestational age. EFW <10% is small for gestational age. EFW 5% or less is considered intra-uterine growth restriction. Anatomic survey: Neuro: Ventricles are non-dilated at less than 10 mm. Cisterna magna is normal at 3-11 mm. Cerebellum is normal in size and morphology. Nuchal skin fold: Normal at less than 6 mm between 14-21 weeks gestational age. Face: Nose and lips, facial profile are normal. Spine: No evidence for spina bifida. Heart: 4-chambered heart is present, with normal ventricular outflow tracts. Diaphragm: Diaphragm is intact. Stomach: Left-sided stomach is present. Kidneys: Bilateral hydronephrosis. Cord: 3-vessel cord has orthotopic insertion. Bladder: Normal in size. Extremities: All 4 extremities identified. IMPRESSION: Single living IUP redemonstrated and interval growth is normal. Bilateral hydronephrosis with the right renal pelvis measuring up to 14.4 mm and the left renal pelvis 11.7 mm. Anatomic survey otherwise is normal. Follow-up recommended. Dictated by: Laron WOOTEN Interpreted: Alirio Gannon MD on 08/02/2020 at 16:04 Approved by: Alirio Gannon M.D. on 08/02/2020 at 17:00
== END ==
PROVIDERS: PCP Obstetrics & Gynecology; Referring Provider Obstetrics & Gynecology; Visit Provider Obstetrics & Gynecology
DX: Z36.89 Encounter for other specified antenatal screening (principal); Z3A.20 20 weeks gestation of pregnancy
CPT/HCPCS: 76811

== ENCOUNTER → 2020-09-05 12:56 | Outpatient (CLI) | payer BC, SELFPAY ==
[2020-09-05 15:01] LABS: Hematocrit 32.1 % (36-46); Hemoglobin 10.6 g/dL (12.0-16.0)
[2020-09-05 15:17] LABS: GTT (PREG) 1 Hour PP 50gm Dose 105 mg/dL (76-139)
== END ==
PROVIDERS: PCP Obstetrics & Gynecology; Referring Provider Obstetrics & Gynecology; Visit Provider Obstetrics & Gynecology
DX: Z34.82 Encounter for supervision of other normal pregnancy, second trimester (principal); Z3A.26 26 weeks gestation of pregnancy
CPT/HCPCS: 36415; 82950; 85014; 85018

== ENCOUNTER 2020-10-27 12:48 | Outpatient (CLI) | payer BC, SELFPAY | END 2020-10-27 14:20 | disposition home or self-care (01) | LOC: LABOR 13:05 → OB 10-30 10:43 | PROVIDERS: PCP Physician Assistant Medical; Referring Provider Obstetrics & Gynecology; Visit Provider Obstetrics & Gynecology | DX: O41.03X0 Oligohydramnios, third trimester, not applicable or unspecified (principal); Z3A.33 33 weeks gestation of pregnancy | CPT/HCPCS: 59025; G0378; G0379 ==

== ENCOUNTER 2020-11-09 11:10 | Outpatient (CLI) | payer BC, SELFPAY | END 2020-11-09 11:50 | disposition home or self-care (01) | LOC: OB 11-12 11:02 | PROVIDERS: PCP Physician Assistant Medical; Referring Provider Obstetrics & Gynecology; Visit Provider Obstetrics & Gynecology | DX: O41.03X0 Oligohydramnios, third trimester, not applicable or unspecified (principal); Z3A.35 35 weeks gestation of pregnancy | CPT/HCPCS: 59025; G0378; G0379 ==

== ENCOUNTER 2020-11-16 11:04 | Outpatient (CLI) | payer BC, SELFPAY | END 2020-11-16 11:51 | disposition home or self-care (01) | LOC: OB 11-17 11:04 | PROVIDERS: PCP Physician Assistant Medical; Referring Provider Obstetrics & Gynecology; Visit Provider Obstetrics & Gynecology | DX: O41.03X0 Oligohydramnios, third trimester, not applicable or unspecified (principal); Z3A.36 36 weeks gestation of pregnancy | CPT/HCPCS: 59025; G0378; G0379 ==

== ENCOUNTER 2024-06-25 07:51 | Day surgery (SDC) | payer BC, SELFPAY ==
[2024-06-21 14:48] VITALS: BMI 23.3
--- NOTE | 2024-06-25 | PATH_ITS ---
[facility] Accession Number: [id number] No. of containers..01 Tissue . 01 Material submitted: . endometrium - ENDOMETRIAL CURETTINGS . 01 Diagnosis: A. ENDOMETRIUM, CURETTAGE: Benign polypoid fragments of late secretory phase endometrium with evidence of shedding/breakdown and mildly decidualized stroma suggestive of progesterone effect/therapy. MRV 06/29/2024 1355 Local . 01 Electronically signed: . Amrita Terrazas MD, Pathologist NPI- [id number] . 01 Gross description: . Received in formalin, labeled with two patient identifiers and endometrial curettings, are multiple ozuna to dark brown soft tissue fragments aggregating to 2.6 x 1.2 x 0.3 cm. Filtered and submitted in cassette A1. ([id number]) /[facility] 06/26/2024 1246 Local . 01 Pathologist provided ICD-10: N84.0, N93.9 . 01 CPT . 046206 Specimen Comment: A courtesy copy of this report has been sent to [phone] Performed at: [address] [facility] [address] [address], [place], [place] [id number] MD Darryl Mariscal MD Phone: [phone]
[2024-06-25 08:27] VITALS: BP 146/86; PULSE 83; RESP 16; TEMP 36.8; O2SAT 100
[2024-06-25 08:29] VITALS: BMI 23.3
[2024-06-25] MEDS: LACTATED RINGERS 1,000 ML 42 ML IV (08:41)
[2024-06-25] MEDS: ACETAMINOPHEN 325 MG TABLET 975 MG PO (08:41)
--- NOTE | 2024-06-25 09:28 | PM.GYNHP.1 ---
History of Present Illness History of Present Illness Reason for admission: vaginal bleeding (Menorrhagia) Narrative: Vonda Contreras is a 39 year old female 4 para 3104 who presents for a D&C hysteroscopy with NovaSure endometrial ablation due to menorrhagia. She had a normal pelvic ultrasound and a negative endometrial biopsy. [facility] Medical History (Updated 06/07/24 @ 03:17 by Lyly Hanley MD) HSV-1 infection Asthma Twin (~01/19/19) History of prediabetes Scoliosis (~2001) Chicken pox (~1993) Infertility (~2009) Irritable bowel syndrome (~2011) Gluten enteropathy (~2016) Hypothyroidism (~2016) Surgical History (Updated 07/05/20 @ 16:55 by Lyly Hanley MD) H/O emergency section History of colposcopy H/O wisdom tooth extraction (~2002) Anesthesia Status post primary low transverse section (~01/19/18) Spontaneous vaginal delivery Family History (Updated 05/09/20 @ 12:29 by Brenda Artis RN) Mother Hypertension Consumes gluten free diet Father Hypertension Leukemia Grandfather Congestive heart failure Hypertension Melanoma Asthma Chronic infection of sinus Grandmother Autoimmune disease Grandfather Cancer Lewy body disease Gastric cancer Grandmother No known health problems Family/Other Prostate cancer Family/Other Aspergers' syndrome Family/Other Cardiac murmur Brother Ulcerative colitis Depression Social History marital status: number of children: 3 household members: spouse, family and children pets and animals: Yes (X 2 dogs) education level: college (some college) occupational status: employed current occupational exposures/hazards: Yes Previous occupational history: Realtor bahman/rastafarian: [employer] special bahman needs: No Smoking Status: Never smoker second hand exposure: No alcohol intake: current substance use type: does not use Meds Home Medications and Allergies Home Medications Medication Instructions Recorded Confirmed Type thyroid (pork) 90 mg tablet 90 mg PO DAILY 07/07/18 06/25/24 History ([place] Thyroid) albuterol sulfate 90 mcg/actuation 1 puff inhalation ONCE 07/05/20 06/25/24 History aerosol inhaler Allergies Allergy/AdvReac Type Severity Reaction Status Date / Time Sulfa (Sulfonamide Allergy rash Verified 06/25/24 08:17 Antibiotics) gluten AdvReac Mild Intolerant Verified 06/25/24 08:17 : malaborption - sometimes gut ache and headache Exam Vital Signs (past 8 hours): - 06/25/24 08:27 Temperature 98.2 F Pulse Rate 83 Respiratory Rate 16 Blood Pressure 146/86 H Pulse Oximetry 100 Oxygen Delivery Method Room Air Oxygen Delivery Method Room Air Narrative Exam Narrative: HEENT: No thyromegaly, no anterior cervical or supraclavicular lymphadenopathy. Lungs:Clear to auscultation bilaterally, no wheezes. Cardiovascular: Regular rate and rhythm, no murmurs, rubs, or gallops. Abdomen: Well-healed Pfannenstiel scars. No hepatosplenomegaly. No masses palpable. External genitalia: Normal Vagina: Normal Cervix: Normal Bimanual exam: 8 Week size anteverted uterus. [place]. No adnexal masses or tenderness Extremities: No edema Assessment & Plan Assessment & Plan narrative: Assessment: 39-year-old 4 para 3104 with menorrhagia Normal pelvic ultrasound and negative endometrial biopsy Plan: D&C hysteroscopy and NovaSure endometrial ablation The risks, benefits, and alternatives to the procedure were explained to the patient. The risks including bleeding, infection, and uterine perforation. She understands these risks and agrees to proceed. A full par Q was held and consent form was signed. Time-Based Coding :: [TOTAL MINUTES] spent with patient and on the chart (including review of chart, obtaining history, exam, reviewing outside data, placing orders, documenting exam and treatment plan, and counseling patient) on [DATE].
--- NOTE | 2024-06-25 09:31 | PM.GYNOP.1 ---
Operative Date/Time/Diagnoses Date of procedure: 06/25/24 Time of procedure: 10:07 Pre-op diagnosis: Menorrhagia Post-op diagnosis: same Procedure & Clinicians Procedure: Procedures Operation Date: 06/25/24 09:15 Actual Procedure Side Surgeon clayton D&C Hysteroscopy w/ Novasure Endometrial Ablation Lyly Hanley MD Indications: 39-year-old 4 para 3104 with menorrhagia. Normal ultrasound and negative endometrial biopsy. Surgeon: Lyly Hanley Anesthesia Type: General (LMA) Operative Notes Findings: 8 week size anteverted uterus Both fallopian tube ostia observed No polyps or fibroids visualized Length of the uterus 5.5 cm from the internal os to the fundus, width of the uterus 4.8 cm. Power 145 w. Time equals 51 seconds. Closure Type: not applicable Specimen(s): endometrial curettings Estimated blood loss (mL): 20 Blood products transfused: none Procedure in detail: After informed consent was obtained, the patient was taken to the operating room where she was placed in the dorsal supine position. After adequate LMA general anesthesia was achieved, she was placed in the dorsal lithotomy position, and prepped and draped in the usual sterile fashion. A time-out was performed. A bivalve speculum was placed into the vagina and the anterior lip of the cervix was grasped with a single-tooth tenaculum. The cervical os was sequentially dilated until the hysteroscope could pass easily into the endometrial cavity. No polyps or fibroids were visualized. Both fallopian tube ostia were observed. The hysteroscope was removed. Sharp curettage was performed yielding a moderate amount of endometrial curettings. The uterus was measured from the internal os to the fundus and measured 5.5 cm. The NovaSure was set at 5.5 cm.The NovaSure catheter passed easily into the endometrial cavity and was opened. The width of the uterus was 4.8 cm. Both the length and width of the uterus were set on the NovaSure generator. This indicated a power of 145 w. The cervix was cap, the cavity assessment was performed and passed. The cycle was initiated and lasted 51 seconds. At the completion of the cycle, the NovaSure catheter was closed, the cervix was uncapped, and the catheter was removed from the uterus. The single-tooth tenaculum was removed from the anterior lip of the cervix. The bivalve speculum was removed from the vagina. Sponge, lap, and instrument counts were correct x2. The patient tolerated the procedure well, and was taken to PACU in stable condition. Complications: none Post-operative Condition: stable Disposition: PACU Plan for aftercare: Home after recovery
--- NOTE | 2024-06-25 09:31 | PM.PREOP ---
Pre-operative Note Interval Note History & Physical reviewed/Exam performed by Physician: Yes Changes to H&P: No H&P completed within 30 days and has changed as indicated here:: 06/25/24
--- NOTE | 2024-06-25 10:14 | SUR.OPER ---
Lithotomy on padded OR bed, head on pillow, arms secured on padded arm boards at <90 degrees abduction. Legs secured in padded yellow fins stirrups.
[2024-06-25 10:15] VITALS: BP 142/92; PULSE 88; RESP 10; TEMP 37.2; O2SAT 100
[2024-06-25 10:17] VITALS: BP 150/84; PULSE 76; RESP 14; O2SAT 100
== END 2024-06-25 10:30 | disposition home or self-care (01) ==
PROVIDERS: PCP Physician Assistant Medical; Referring Provider Obstetrics & Gynecology; Visit Provider Obstetrics & Gynecology
PROC: 0U5B8ZZ Destruction of Endometrium, Via Natural or Artificial Opening Endoscopic (ICD-10-PCS; CPT 58563; principal; 2024-06-25 09:15)
DX: N93.9 Abnormal uterine and vaginal bleeding, unspecified (principal); N84.0 Polyp of corpus uteri
CPT/HCPCS: 58563; 81025; J3010